=== PATIENT | male | born 1985 | race Two or more races ===

== ENCOUNTER → 2023-04-24 | Outpatient (CLI) | payer MEDICAID ==
[2023-04-24 10:19] LABS: Free T3 3.07 pg/mL (2.3-4.2)
[2023-04-24 10:23] LABS: Free T4 (Free Thyroxine) 1.6 ng/dL (0.89-1.76)
== END | disposition home or self-care (01) ==
LOC: LAB 09:27
PROVIDERS: ATTEND Student in an Organized Health Care Education/Training Program
DX: I48.0 Paroxysmal atrial fibrillation (principal)
CPT/HCPCS: 36415; 84439; 84443; 84481

== ENCOUNTER 2025-01-14 21:20 | Emergency (ER) | payer MEDICAID ==
[~2025-01-14] VITALS: Ht 175.3 cm; Wt 80.0 kg
[2025-01-14 21:34] VITALS: BP 134/83; PULSE 105; RESP 18; TEMP 98; O2SAT 99
--- NOTE | 2025-01-20 12:01 | ECG ---
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
== END 2025-01-14 23:20 | disposition left against medical advice (07) ==
LOC: ER 21:20
DX: R00.2 Palpitations (principal); I48.91 Unspecified atrial fibrillation
CPT/HCPCS: 93005